=== PATIENT | female | born 1990 | race Caucasian/White ===

== ENCOUNTER 2016-10-08 13:10 | Emergency (ER) | payer BC ==
[~2016-10-08] VITALS: Ht 152.4 cm; Wt 64.4 kg
[~2016-10-08 13:10] MED LIST: MOTRIN600 MG PO; NAPROSYN500 MG PO; NEURONTIN300 MG PO; NEURONTIN600 MG PO; NORCO 5/3251 TABLET PO; ULTRAM50 MG PO; ZOFRAN4 MG PO
[2016-10-08] MEDS ORDERED: GABAPENTIN600 MG PO (14:11)
[2016-10-08 14:20] LABS: HEMATOCRIT 43.7 % (36.0-46.0); MCH 28.5 PG (29.0-34.0); MCHC 32.5 G/DL (30.0-36.0); MCV 87.8 FL (83-99); MEAN PLAT.VOLUME 10.8 uM^3 (9.5-12.4); PLATELET COUNT 319 K/uL (156-360); RBC DIS.WIDTH-CV 12.6 % (11.8-14.6); RBC DIS.WIDTH-SD 40.9 % (39-53); RED BLOOD COUNT 4.98 M/uL (3.80-5.20); WHITE BLOOD COUNT 8.1 K/uL (4.1-10.2)
[2016-10-08 14:26] LABS: ADD MIUA? YES; BILIRUBIN NEGATIVE; BLOOD MODERATE; COLOR YELLOW ((YELLOW)); GLUCOSE (STRIP) NEGATIVE; KETONES 80; LEUKOCYTES TRACE; NITRITE NEGATIVE; PROTEIN (STRIP) NEGATIVE; SPECIFIC GRAVITY 1.015 (1.000-1.030); UROBILINOGEN 0.2 MG/DL (0.2-1.0)
[2016-10-08 14:31] LABS: BACTERIA RARE /HPF; EPITHELIAL CELLS 2+ /HPF; MUCUS TRACE /LPF; RED BLOOD CELLS 0-5 /HPF (0-5); UCUL ADDED? NO; WHITE BLOOD CELLS 0-5 /HPF (0-5)
[2016-10-08] MEDS ORDERED: ULTRAM50 MG PO (14:40)
[2016-10-08] MEDS ORDERED: MOTRIN600 MG PO (14:40)
[2016-10-08] MEDS ORDERED: ZOFRAN ODT4 MG PO (14:40)
[2016-10-08 15:11] LABS: ALKALINE PHOSPHATASE 53 IU/L (3-129); ANION GAP 8 MEQ/L (2-14); CHLORIDE 104 MEQ/L (99-109); GFR ESTIMATE (CALCULATED) > 59 mL/min/; GLUCOSE 79 mg/dL (70-99); POTASSIUM 3.3 MEQ/L (3.7-5.4); SAMPLE HEMOLYSIS CHECK 0; SAMPLE ICTERIC CHECK 0; SAMPLE LIPEMIA CHECK 0; SODIUM 138 MEQ/L (136-147); TOTAL BILIRUBIN 0.5 MG/DL (0.0-1.0); UREA NITROGEN (BUN) 14 mg/dL (9-23)
[2016-10-08 15:14] LABS: QUANTITATIVE HCG < 4.0 MIU/ML
[2016-10-08 15:43] VITALS: BP 104/64
== END 2016-10-08 15:53 | disposition home or self-care (01) ==
LOC: EME 13:10
DX: N83.202 Unspecified ovarian cyst, left side (principal); R31.9 Hematuria, unspecified; R10.2 Pelvic and perineal pain; F17.200 Nicotine dependence, unspecified, uncomplicated
CPT/HCPCS: 76856; 80053; 81003; 84702; 85027; 99281; 99284; J1885